=== PATIENT | male | born 1975 | race Two or more races ===

== ENCOUNTER → 2019-04-19 | Emergency (ER) | payer MEDICAID ==
[~2019-04-19] VITALS: Ht 170.2 cm; Wt 86.2 kg
[~2019-04-19] MED LIST: HYDROCODONE/APAP 5-325MG TABLET ONE; HYDROCODONE/APAP 5-325MG TABLET PO ONE; KETOROLAC TROMETHAMINE 30 MG INJ IM ONE; KETOROLAC TROMETHAMINE 30 MG INJ ONE; TRAMADOL HCL 50 MG TABLET ONE; TRAMADOL HCL 50 MG TABLET PO ONE
--- NOTE | 2019-04-19 00:30 | NUR ---
[place] CHEST STARTED TO HURT AND HE STATED HE ALMOST FELL AND HE STOP HIS FALL USING HIS RIGHT HAND WHICH IS SWOLLEN AND TENDER TO TOUCH OVERALL APPEARANCES FAIR PAIN LEVEL 10 COMFORT AND SAFETY MAINTAINED, IS AWARE
[2019-04-19 01:11] LABS: BASOPHILS # (AUTO) 0.1 K/uL (0.0-8.0); BASOPHILS % (AUTO) 0.4 % (0.0-2.0); EOSINOPHILS % (AUTO) 0.2 % (0.0-7.0); HEMATOCRIT 43.5 % (36.7-47.1); HEMOGLOBIN 14.5 g/dL (12.5-16.3); LYMPHOCYTES # (AUTO) 1.6 K/uL (20.0-40.0); LYMPHOCYTES % (AUTO) 11.2 % (20.5-51.5); MEAN CORPUSCULAR HEMOGLOBIN 28.8 uug (23.8-33.4); MEAN CORPUSCULAR HGB CONC 33 g/dL (32.5-36.3); MEAN CORPUSCULAR VOLUME 86.4 fL (73.0-96.2); MONOCYTES # (AUTO) 0.5 K/uL (2.0-10.0); MONOCYTES % (AUTO) 3.6 % (0.0-11.0); NEUTROPHILS # (AUTO) 12.4 K/uL (1.8-8.9); NEUTROPHILS % (AUTO) 84.6 % (38.5-71.5); PLATELET COUNT (AUTO) 304 K/uL (152-348); RED BLOOD CELL COUNT(AUTO) 5.04 MIL/uL (4.06-5.63); WHITE BLOOD COUNT (AUTO) 14.7 K/uL (3.6-10.2)
[2019-04-19 01:16] LABS: CREATININE 1.2 mg/dL (0.6-1.3); POTASSIUM 4.5 mmol/L (3.5-5.1)
--- NOTE | 2019-04-19 01:30 | NUR ---
REASSESS PT QUIET AND CALM WAS MED TIME ONE WITH TORADOL WITH SOME EFFECT PAIN LEVEL 4 COMFORT AND SAFETY MAINTAINED
--- NOTE | 2019-04-19 02:00 | NUR ---
PT WAS GIVEN ULTRAM FOR PAIN WITH SOME EFFECT RIGHT UPPER HAND UPPER ELEVATED ON PILLOWS
--- NOTE | 2019-04-19 03:15 | NUR ---
PT IS GETTING A SAC ON RIGHT ARM R/T FX PT CARA PROCEDURE FAIRLY WELL HE DENIES CP, COMFORT AND SAFETY MAINTAINED
--- NOTE | 2019-04-19 03:45 | NUR ---
PT WAS MED TIME WITH [facility] FOR PAIN IN PAT DENIES ALLERGY MED TEACHING GIVEN COMFORT AND SAFETY MAINTAINED PT DENIES CP OR CHEST DISCOMFORT
--- NOTE | 2019-04-19 04:30 | NUR ---
PT PAIN LEVEL A 2 WHICH HE STATED HE COMFORTABLE WITH BUT DENIES CP OR CHEST DISCOMFORT OVERALL APPEARANCES FAIR
--- NOTE | 2019-04-19 05:10 | NUR ---
Patient given written and verbal discharge instructions. Patient verbalizes understanding of instructions. Patient is ambulatory with steady gait. Refuses offer of skilled nursing placement. Patient given list of available shelters in surrounding area. PATIENT REFUSED FOODS AND TRANSPORTATION STATED HE HAS HIS OWN TRANSPORTATION. TEACHING GIVEN R/T HIS PRESCRIPTIONS ALSO VERBALIZED HIS UNDERSTANDING WELL. HIS OVERALL APPEARANCES FAIR DID HAVE A RIGHT UPPER ARM SHORT ARM CAST ON WITH SLING DENIES PAIN/DISCOMFORT VSS PT IS ALERT, AWAKE AND ORIENTED TIMES FOUR
[2019-04-19 05:54] VITALS: BP 96/75
== END | disposition home or self-care (01) ==
LOC: ER 00:27
DX: S62.91XA Unspecified fracture of right hand, initial encounter for closed fracture (principal); R07.9 Chest pain, unspecified; K04.7 Periapical abscess without sinus; R42 Dizziness and giddiness; R11.0 Nausea; F17.210 Nicotine dependence, cigarettes, uncomplicated; X58.XXXA Exposure to other specified factors, initial encounter; Y93.89 Activity, other specified; Y92.89 Other specified places as the place of occurrence of the external cause; Y99.8 Other external cause status
CPT/HCPCS: 29125; 36415; 71045; 73110; 73130; 80048; 84484 ×2; 85025; 85379; 93005 ×2; 96372; 99284; J1885; 70030-TC; A4663

== ENCOUNTER 2019-05-06 17:14 | Emergency (ER) | payer MEDICAID ==
[~2019-05-06] VITALS: Ht 167.6 cm; Wt 90.7 kg
--- NOTE | 2019-05-06 17:35 | NUR ---
ALEIDA MCCOLLUM AT BEDSIDE FOR MSE.
--- NOTE | 2019-05-06 17:55 | NUR ---
Patient discharged to home in stable conditon. Written and verbal after care instructions given. Patient verbalizes understanding of instructions. ALL BELONGINGS W/ PT. PT SELF-AMBULATED W/O DIFFICUTLY.2
[2019-05-06 17:56] VITALS: BP 108/71
== END 2019-05-06 17:56 | disposition home or self-care (01) ==
LOC: ER 17:14
DX: S62.111D Displaced fracture of triquetrum [cuneiform] bone, right wrist, subsequent encounter for fracture with routine healing (principal); F17.210 Nicotine dependence, cigarettes, uncomplicated; X58.XXXD Exposure to other specified factors, subsequent encounter
CPT/HCPCS: A4663